=== PATIENT | male | born 1960 | race Caucasian/White ===

== ENCOUNTER 2017-10-15 21:15 | Inpatient (IN) | payer MEDICARE, MEDICAID ==
[2017-10-15] MEDS: PANTOPRAZOLE 40 MG INJ IV (23:43)
[2017-10-15] MEDS: ONDANSETRON 4 MG INJ IV (23:43)
[2017-10-15 23:53] LABS: ADD MAN DIFF? NO
[2017-10-15 23:54] LABS: ABNORMAL IP MESSAGE 1; BASOPHILS % 0.7 % (0.0-2.0); EOSINOPHILS # 0.2 10^3/ul (0.0-0.5); HEMATOCRIT 34.4 % (42.0-52.0); HEMOGLOBIN 11.1 g/dl (14.0-18.0); LYMPHOCYTES # 0.5 10^3/ul (0.8-2.9); LYMPHOCYTES % 8.8 % (15.0-51.0); MEAN CORPUSCULAR HGB CONC 32.3 g/dl (32.0-37.0); MEAN PLATELET VOLUME 11.2 fl (7.4-10.4); MONOCYTE # 0.4 10^3/ul (0.3-0.9); NEUTROPHIL # 4.9 10^3/ul (1.6-7.5); NEUTROPHILS % 81.2 % (39.0-77.0); PLATELET COUNT 164 10^3/UL (140-415); POSITIVE DIFF @See below; RED CELL DISTRIBUTION WIDTH 12.8 % (11.5-14.5)
[2017-10-16 00:15] LABS: ALANINE AMINOTRANSFERASE 22 IU/L (13-69); ALKALINE PHOSPHATASE 72 IU/L (42-121); ANION GAP 31 (8-16); ASPARTATE AMINO TRANSFERASE 33 IU/L (15-46); BILIRUBIN,INDIRECT 0.3 mg/dl (0-1.1); BILIRUBIN,TOTAL 0.3 mg/dl (0.2-1.3); BLOOD UREA NITROGEN 16 mg/dl (7-20); CARBON DIOXIDE 20 mmol/L (21-31); CHLORIDE 92 mmol/L (97-110); CREATININE 4.43 mg/dl (0.61-1.24); GLUCOSE 146 mg/dl (70-220); LIPASE 25 U/L (23-300); POTASSIUM 4.7 mmol/L (3.5-5.1); SODIUM 138 mmol/L (135-144); TOTAL PROTEIN 6.5 g/dl (6.1-8.1)
[2017-10-16 00:27] LABS: TROPONIN-I 0.046 ng/ml (0.00-0.12)
[2017-10-16] MEDS: OCTREOTIDE 50 MCG in SOD CHLORIDE 0.9% 25 ML IVPB (00:43)
[2017-10-16] MEDS ORDERED: ONDANSETRON 4 MG INJ IV (02:00)
[2017-10-16] MEDS ORDERED: ACETAMINOPHEN 325 MG TAB PO (02:00)
[2017-10-16] MEDS ORDERED: NACL 0.9% 3 ML SYG IV (02:00)
[2017-10-16] MEDS ORDERED: BISACODYL (EC) 5 MG TAB PO (02:00)
[2017-10-16] MEDS ORDERED: DOCUSATE SODIUM 100 MG CAP PO (02:00)
[2017-10-16] MEDS ORDERED: morphine 2 MG INJ IV (02:00)
[2017-10-16] MEDS: SOD CHLORIDE 0.9% 1,000 ML IV (06:25)
[2017-10-16] MEDS: PANTOPRAZOLE 40 MG INJ IV ×2 (06:26→17:31)
[2017-10-16 08:17] LABS: HEMATOCRIT 30.8 % (42.0-52.0); HEMOGLOBIN 10.3 g/dl (14.0-18.0)
[2017-10-16 08:19] LABS: HEMOGLOBIN A1C 11.7 % (0-5.9)
[2017-10-16 08:36] LABS: ALANINE AMINOTRANSFERASE 25 IU/L (13-69); ALBUMIN 3.7 g/dl (3.3-4.9); ALBUMIN/GLOBULIN RATIO 1.42; ALKALINE PHOSPHATASE 73 IU/L (42-121); ANION GAP 31 (8-16); ASPARTATE AMINO TRANSFERASE 20 IU/L (15-46); BILIRUBIN,INDIRECT 0.2 mg/dl (0-1.1); BILIRUBIN,TOTAL 0.2 mg/dl (0.2-1.3); BLOOD UREA NITROGEN 18 mg/dl (7-20); CALCIUM 8.8 mg/dl (8.4-10.2); CARBON DIOXIDE 20 mmol/L (21-31); CHLORIDE 92 mmol/L (97-110); CHOL/HDL RATIO 3.1 RATIO; CHOLESTEROL 117 mg/dl (100-200); CREATININE 5.17 mg/dl (0.61-1.24); GLUCOSE 130 mg/dl (70-220); HDL CHOLESTEROL 37 mg/dl (28-71); LDL CHOLESTEROL,CALCULATED 54 mg/dl; POTASSIUM 4.1 mmol/L (3.5-5.1); SODIUM 139 mmol/L (135-144); TOTAL PROTEIN 6.3 g/dl (6.1-8.1); TRIGLYCERIDES 130 mg/dl (0-149)
[2017-10-16 09:04] LABS: THYROID STIMULATING HORMONE 0.586 MIU/L (0.465-4.680)
[2017-10-16] MEDS ORDERED: GLUCAGON 1 MG INJ IM (09:30)
[2017-10-16] MEDS ORDERED: GLUCOSE GEL 15 GRAM TUBE BUCCAL (09:30)
[2017-10-16] MEDS ORDERED: DEXTROSE 50% 50 ML SYRINGE IV ×2 (09:30)
[2017-10-16] MEDS ORDERED: GLUCOSE GEL 15 GRAM TUBE PO ×2 (09:30)
[2017-10-16] MEDS: INSULIN ASPART [NOVOLOG] 3 ML PEN SC ×5 (11:19→23:04)
[2017-10-16 11:28] LABS: HEMATOCRIT 32.2 % (42.0-52.0); HEMOGLOBIN 10.4 g/dl (14.0-18.0)
[2017-10-16 11:49] LABS: INR 1.48; PROTIME 18.2 Sec (11.9-14.9); PT RATIO 1.4
[2017-10-16 11:50] LABS: PARTIAL THROMBOPLASTIN TIME 35.6 Sec (25.0-35.0)
[2017-10-16] MEDS: PROPOFOL 40 ML (13:25)
[2017-10-16 16:29] LABS: HEMATOCRIT 30.3 % (42.0-52.0); HEMOGLOBIN 9.9 g/dl (14.0-18.0)
[2017-10-16] MEDS: PHYTONADIONE 10 MG/ML INJ IM (17:31)
[2017-10-16] MEDS: ISOSORBIDE MONONITRATE(SR)60 MG TAB PO (22:48)
[2017-10-16] MEDS: LISINOPRIL 20 MG TAB PO (22:48)
[2017-10-16] MEDS: LOPERAMIDE 2 MG CAP PO (22:49)
[2017-10-16] MEDS: INSULIN GLARGINE [LANtus] 3 ML PEN SC (22:59)
[2017-10-17] MEDS: hydrALAzine 20 MG INJ IV (00:28)
[2017-10-17] MEDS: INSULIN ASPART [NOVOLOG] 3 ML PEN SC ×8 (01:22→22:11)
[2017-10-17] MEDS: SOD CHLORIDE 0.9% 1,000 ML IV ×2 (01:46→05:43)
[2017-10-17] MEDS: ACCU-CHEK XX (02:00)
[2017-10-17] MEDS: PANTOPRAZOLE 40 MG INJ IV ×2 (05:40→17:45)
[2017-10-17] MEDS: FUROSEMIDE 40 MG TAB PO ×2 (05:40→17:45)
[2017-10-17] MEDS: SEVELAMER 800 MG TAB PO ×3 (08:59→17:44)
[2017-10-17] MEDS: ISOSORBIDE MONONITRATE(SR)60 MG TAB PO (09:00)
[2017-10-17] MEDS: ISONIAZID 300 MG TAB PO (09:00)
[2017-10-17] MEDS ORDERED: ISOSORBIDE MONONITRATE(SR)60 MG TAB PO (09:00)
[2017-10-17] MEDS ORDERED: LISINOPRIL 20 MG TAB PO (09:00)
[2017-10-17] MEDS: PYRIDOXINE 50 MG TAB PO (09:00)
[2017-10-17] MEDS: LISINOPRIL 20 MG TAB PO (09:01)
[2017-10-17] MEDS: INSULIN GLARGINE [LANtus] 3 ML PEN SC ×2 (09:14→22:11)
[2017-10-17 09:27] LABS: ADD MAN DIFF? NO
[2017-10-17 09:28] LABS: BASOPHILS % 0.9 % (0.0-2.0); EOSINOPHILS # 0.4 10^3/ul (0.0-0.5); EOSINOPHILS % 9.5 % (0.0-7.0); HEMATOCRIT 27.8 % (42.0-52.0); HEMOGLOBIN 9.1 g/dl (14.0-18.0); LYMPHOCYTES # 0.7 10^3/ul (0.8-2.9); LYMPHOCYTES % 15.3 % (15.0-51.0); MEAN CORPUSCULAR HEMOGLOBIN 30.1 pg (29.0-33.0); MEAN CORPUSCULAR HGB CONC 32.7 g/dl (32.0-37.0); MEAN CORPUSCULAR VOLUME 92.1 fl (82.0-101.0); MONOCYTE # 0.4 10^3/ul (0.3-0.9); MONOCYTES % 9.7 % (0.0-11.0); NEUTROPHIL # 2.9 10^3/ul (1.6-7.5); NEUTROPHILS % 64.4 % (39.0-77.0); PLATELET COUNT 162 10^3/UL (140-415); RED BLOOD COUNT 3.02 10^6/ul (4.70-6.10); RED CELL DISTRIBUTION WIDTH 12.8 % (11.5-14.5)
[2017-10-17 09:28] LABS: WHITE BLOOD COUNT 4.4 10^3/ul (4.8-10.8)
[2017-10-17 10:08] LABS: ANION GAP 17 (8-16); BLOOD UREA NITROGEN 29 mg/dl (7-20); CALCIUM 7.3 mg/dl (8.4-10.2); CARBON DIOXIDE 25 mmol/L (21-31); CHLORIDE 98 mmol/L (97-110); CREATININE 6.43 mg/dl (0.61-1.24); GLUCOSE 143 mg/dl (70-220); POTASSIUM 3.2 mmol/L (3.5-5.1); SODIUM 137 mmol/L (135-144)
[2017-10-17 10:16] LABS: MAGNESIUM 1.9 mg/dl (1.7-2.5)
[2017-10-17] MEDS: POTASSIUM CHLORIDE (SR) 10 MEQ TAB PO (12:33)
[2017-10-17] MEDS: EPOETIN 10000 UNITS/1 ML INJ (ESRD) SC (15:25)
[2017-10-17] MEDS ORDERED: INSULIN GLARGINE [LANtus] 3 ML PEN SC (21:00)
[2017-10-17] MEDS ORDERED: INSULIN ASPART [NOVOLOG] 3 ML PEN SC (21:00)
[2017-10-17] MEDS: ATORVASTATIN 80 MG TAB PO (21:48)
[2017-10-18] MEDS: ACCU-CHEK XX (02:00)
[2017-10-18 06:03] LABS: ADD MAN DIFF? NO
[2017-10-18 06:08] LABS: BASOPHILS % 0.6 % (0.0-2.0); EOSINOPHILS # 0.6 10^3/ul (0.0-0.5); HEMOGLOBIN 9.3 g/dl (14.0-18.0); LYMPHOCYTES # 0.8 10^3/ul (0.8-2.9); LYMPHOCYTES % 15.7 % (15.0-51.0); MEAN CORPUSCULAR HGB CONC 33.2 g/dl (32.0-37.0); MEAN CORPUSCULAR VOLUME 90.3 fl (82.0-101.0); MEAN PLATELET VOLUME 10.8 fl (7.4-10.4); MONOCYTE # 0.5 10^3/ul (0.3-0.9); NEUTROPHIL # 3.1 10^3/ul (1.6-7.5); NEUTROPHILS % 61.5 % (39.0-77.0); PLATELET COUNT 156 10^3/UL (140-415); RED CELL DISTRIBUTION WIDTH 12.8 % (11.5-14.5)
[2017-10-18 06:08] LABS: WHITE BLOOD COUNT 5.1 10^3/ul (4.8-10.8)
[2017-10-18] MEDS: FUROSEMIDE 40 MG TAB PO ×2 (06:18→18:19)
[2017-10-18] MEDS: PANTOPRAZOLE 40 MG INJ IV ×2 (06:19→18:19)
[2017-10-18 06:38] LABS: PHOSPHORUS 5.3 mg/dl (2.5-4.9)
[2017-10-18 06:38] LABS: MAGNESIUM 1.9 mg/dl (1.7-2.5)
[2017-10-18 07:32] LABS: ANION GAP 20 (8-16); BLOOD UREA NITROGEN 39 mg/dl (7-20); CALCIUM 7.6 mg/dl (8.4-10.2); CARBON DIOXIDE 24 mmol/L (21-31); CHLORIDE 95 mmol/L (97-110); CREATININE 8.05 mg/dl (0.61-1.24); GLUCOSE 158 mg/dl (70-220); POTASSIUM 4.1 mmol/L (3.5-5.1); SODIUM 135 mmol/L (135-144)
[2017-10-18] MEDS ORDERED: INSULIN GLARGINE [LANtus] 3 ML PEN SC (08:00)
[2017-10-18] MEDS: SEVELAMER 800 MG TAB PO ×3 (08:09→18:19)
[2017-10-18] MEDS: ISONIAZID 300 MG TAB PO (08:10)
[2017-10-18] MEDS: ISOSORBIDE MONONITRATE(SR)60 MG TAB PO (08:10)
[2017-10-18] MEDS: PYRIDOXINE 50 MG TAB PO (08:10)
[2017-10-18] MEDS: hydrALAzine 20 MG INJ IV (08:11)
[2017-10-18] MEDS: LISINOPRIL 20 MG TAB PO (08:11)
[2017-10-18] MEDS: INSULIN ASPART [NOVOLOG] 3 ML PEN SC ×7 (08:18→21:27)
[2017-10-18] MEDS: ATORVASTATIN 80 MG TAB PO (21:00)
[2017-10-18] MEDS: INSULIN GLARGINE [LANtus] 3 ML PEN SC (21:05)
== END 2017-10-18 21:25 | disposition home or self-care (01) | DRG 377 ==
LOC: TEL 10-16 01:24 → MS2 10-17 19:16 → E/R 21:15
PROC: 0DB58ZX Excision of Esophagus, Via Natural or Artificial Opening Endoscopic, Diagnostic (ICD-10-PCS; principal; 2017-10-16 13:00)
PROC: 5A1D70Z Performance of Urinary Filtration, Intermittent, Less than 6 Hours Per Day (ICD-10-PCS; 2017-10-16 13:11)
DX: K92.2 Gastrointestinal hemorrhage, unspecified (principal); N18.6 End stage renal disease; I12.0 Hypertensive chronic kidney disease with stage 5 chronic kidney disease or end stage renal disease; E11.22 Type 2 diabetes mellitus with diabetic chronic kidney disease; D62 Acute posthemorrhagic anemia; I25.10 Atherosclerotic heart disease of native coronary artery without angina pectoris; R76.11 Nonspecific reaction to tuberculin skin test without active tuberculosis; E78.5 Hyperlipidemia, unspecified; K22.9 Disease of esophagus, unspecified; D63.1 Anemia in chronic kidney disease; Z99.2 Dependence on renal dialysis; Z79.4 Long term (current) use of insulin; Z79.82 Long term (current) use of aspirin
CPT/HCPCS: 36415; 71010; 74176; 76700; 80048; 80053; 80061; 82962; 83036; 83690; 83735; 84100; 84443; 84484; 85014; 85018; 85025; 85610; 85730; 86480; 86850; 86900; 86901; 87075; 87400; 88305; 90935; 93005; 96374; 96375; 99285-25